=== PATIENT | female | born 1980 | race Caucasian/White ===

== ENCOUNTER 2019-10-20 12:50 | Observation (INO) | payer BC ==
[~2019-10-20] VITALS: Ht 162.6 cm; Wt 69.1 kg
[2019-10-20] MEDS ORDERED: PROMETRIUM100 MG PO (13:20)
[2019-10-20] MEDS ORDERED: AMBIEN5 MG PO (13:20)
[2019-10-20] MEDS ORDERED: MIRALAX17 GM PO (13:21)
[2019-10-20] MEDS ORDERED: LINZESS290 MCG PO (13:21)
[2019-10-20] MEDS ORDERED: ED-SPAZ0.125 MG PO (13:21)
[2019-10-20] MEDS ORDERED: GAVILYTE-C SO4000 ML PO (13:23)
[2019-10-20] MEDS ORDERED: CHRONULAC30 ML PO (13:23)
[2019-10-20 13:54] LABS: BASOPHILS 0.3 % (0-2); EOSINOPHILS 2.3 % (0-7); HEMATOCRIT 41.9 % (36.0-48.0); IMMATURE GRANULOCYTES 0.1 % (0-5); LYMPHOCYTES 34.6 % (15-50); MCHC 33.4 g/dL (31.0-37.0); MCV 86.7 fL (80.0-100.0); MEAN PLATELET VOLUME 9.1 fL (7.4-10.4); MONOCYTES 9.7 % (2-11); PLATELET COUNT 372 10x3/uL (130-400); RBC 4.83 10x6/uL (4.00-5.40); RDW 12.4 % (11.5-14.5); WBC 7.4 10x3/uL (4.8-10.8)
[2019-10-20 14:02] LABS: CALC OSMOLALITY 273 mosm/kg (275-300); CALCIUM 9.3 mg/dL (8.5-10.1); CARBON DIOXIDE 27.3 mmol/L (21.0-32.0); CHLORIDE - SERUM 102 mmol/L (98-107); CREATININE - SERUM 0.8 mg/dL (0.6-1.3); GLUCOSE 97 mg/dL (74-106); POTASSIUM - SERUM 4.2 mmol/L (3.5-5.1); SODIUM 138 mmol/L (136-145); UREA NITROGEN 6 mg/dL (7-18); eGFR NON AFRICAN AMERICAN 84 mL/min (90-120)
[2019-10-20 14:08] LABS: ALBUMIN 4.3 g/dL (3.4-5.0); ALKALINE PHOSPHATASE 72 U/L (46-116); ALT (SGPT) 27 U/L (10-68); AMYLASE - SERUM 55 U/L (25-115); LIPASE 96 U/L (73-393); PROTEIN - SERUM 8.4 g/dL (6.4-8.2)
[2019-10-20 14:40] LABS: APPEARANCE CLEAR (CLEAR); BILIRUBIN NEGATIVE (NEGATIVE); COLOR YELLOW (YELLOW); GLUCOSE NEGATIVE (NEGATIVE); KETONE NEGATIVE (NEGATIVE); NITRITE NEGATIVE (NEGATIVE); PROTEIN NEGATIVE (NEGATIVE); SPECIFIC GRAVITY 1.005 (1.005-1.020); UROBILINOGEN NORMAL (NORMAL)
--- NOTE | 2019-10-20 18:30 | NUR ---
SPOKE WITH ABOUT NS NOT BEING SCHEDULED UNTIL 129 TOMORROW. HE ADVISED TO GO AHEAD AND START THE FLUIDS NOW.
--- NOTE | 2019-10-20 19:00 | NUR ---
ADMITTED TO ROOM ALERT AND ORIENTIATED, STATES NO BM IN 12 DAYS, HAS TRIED MULTIPLE OTC MEDS WITHOUT RESULETS, SEE ASSESSMENT, ORIENTIATED TO ROOM CALL LIGHT IN REACH
[2019-10-20 23:19] VITALS: BP 139/92; BMI 26.1
--- NOTE | 2019-10-20 23:41 | NUR ---
500CC SS ENEMA GIVEN TOLERATED WELL RETURN OF FLUID ONLY NO STOOL NOTED OR FELT IN RECTAL VAULT, UP WALKING IN HALLWAY AT THIS TIME
[2019-10-21 01:39] VITALS: BP 139/97
[2019-10-21 04:49] VITALS: BP 134/89
[2019-10-21 06:56] LABS: BASOPHILS 0.1 % (0-2); EOSINOPHILS 2.8 % (0-7); HEMATOCRIT 37.8 % (36.0-48.0); HEMOGLOBIN 12.1 g/dL (12-16); IMMATURE GRANULOCYTES 0.2 % (0-5); LYMPHOCYTES 32.4 % (15-50); MCH 28.3 pg (26.0-34.0); MCV 88.3 fL (80.0-100.0); MEAN PLATELET VOLUME 9.6 fL (7.4-10.4); MONOCYTES 10.7 % (2-11); NEUTROPHILS 53.8 % (40-80); PLATELET COUNT 346 10x3/uL (130-400); RBC 4.28 10x6/uL (4.00-5.40); RDW 12.8 % (11.5-14.5)
[2019-10-21 07:05] LABS: ALBUMIN 3.4 g/dL (3.4-5.0); ALKALINE PHOSPHATASE 54 U/L (46-116); ALT (SGPT) 24 U/L (10-68); BILIRUBIN - TOTAL 0.21 mg/dL (0.2-1.3); CALC OSMOLALITY 273 mosm/kg (275-300); CALCIUM 7.9 mg/dL (8.5-10.1); CARBON DIOXIDE 24.2 mmol/L (21.0-32.0); CHLORIDE - SERUM 106 mmol/L (98-107); CREATININE - SERUM 0.8 mg/dL (0.6-1.3); GLUCOSE 80 mg/dL (74-106); MAGNESIUM - SERUM 2.2 mg/dL (1.8-2.4); PROTEIN - SERUM 6.7 g/dL (6.4-8.2); SODIUM 139 mmol/L (136-145); UREA NITROGEN 5 mg/dL (7-18); eGFR NON AFRICAN AMERICAN 84 mL/min (90-120)
--- NOTE | 2019-10-21 07:50 | NUR ---
AWAKE AND ALERT. ORIENTED X3. C/O SOME ABDOMINAL PAIN THIS AM. REPORTED PASSING FLATUS AND STOMACH RUMBLING A BIT BUT STILL NO STOOL. WILL MONITOR. LUNGS ARE CLEAR BILATERALLY, NO COUGH NOTED. SKIN IS INTACT WITHOUT REDNESS. IV TO LEFT AC IS PATENT WITHOUT REDNESS AT INSERTION SITE. MOM AT BEDSIDE. DENIES NEEDS. SCD'S PLACED PER STAFF.
[2019-10-21 08:53] VITALS: BP 136/88
--- NOTE | 2019-10-21 08:53 | NUR ---
REQUESTED AND GIVEN 4MG MORPHINE SLOW IVP FOR ABDOMINAL PAIN LEVEL 10. WILL MONITOR.
[2019-10-21 10:28] VITALS: Ht 162.6 cm; Wt 69.1 kg
--- NOTE | 2019-10-21 11:24 | NUR ---
RESTING QUIETLY IN ROOM. DENIES NEEDS.
[2019-10-21] MEDS ORDERED: HYDROCODON-ACE1 EAC7 PO (11:33)
--- NOTE | 2019-10-21 12:38 | NUR ---
DISCHARGED TO HOME AMBULATORY WITH FAMILY. DISCHARGE INSTRUCTIONS GIVEN BOTH VERBALLY AND WRITTEN. ALL QUESTIONS ANSWERED. PATIENT VERBALIZED UNDERSTANDING OF SAME. IV TO LEFT AC D/C WITH CATHETER INTACT. ALL BELONGINGS IWTH PATIENT. NEEDED PRESCRIPTIONS GIVEN TO PATIENT.
--- NOTE | 2019-10-22 07:30 | MORECARE ---
CASE MANAGEMENT DISCHARGE SUMMARY PATIENT: ULISES LONDONO UNIT: [id number] ADM DATE: 10/20/19 AGE: 38 : 76 SEX: F ROOM/BED: [facility] AUTHOR: BRETT KUMAR PHYSICIAN: REFERRING PHYSICIAN: GENARO JORGE MD DATE OF SERVICE: 10/22/19 Discharge Plan Patient Name: ULISES LONDONO [facility] [facility] 1980 Planned Disposition: Home Anticipated Discharge Date: Discharge Date: 10/21/2019 Expected LOS: 0 Initial Reviewer: [email or web address] Initial Review Date: 10/22/2019 Generated: 10/22/19 8:29 am Patient Name: ULISES LONDONO Page [id number] at 0730 All edits/amendments must be made on the electronic document DICTATION DATE: 10/22/19728 ENTERTAINMENT CENTRE MANAGER: STAR 10/22/19728 RPT#: [id number] DC DATE:10/21/19 STATUS: DIS IN [facility] [address] [place] [address] END OF REPORT
== END 2019-10-21 12:42 | disposition home or self-care (01) ==
LOC: D.ER 12:50 → D.MS 18:19 → OBSVTIME 21:00 → D.MS 10-21 12:42
PROVIDERS: Family Medicine; ADMIT Family Medicine; ATTEND Family Medicine
DX: K56.7 Ileus, unspecified (principal); K59.09 Other constipation